=== PATIENT | male | born 1965 | race Caucasian/White ===

== ENCOUNTER 2018-11-08 07:56 | Observation (INO) | payer OTHER ==
[2018-11-08] MEDS: SOD CHLORIDE 0.9% 1,000 ML IV (07:00)
[~2018-11-08 07:56] MED LIST: CEFAZOLIN 2 GM/50 ML (PMX) 50 ML IVPB
[2018-11-08 08:59] LABS: ADD MAN DIFF? NO
[2018-11-08 09:00] LABS: BASOPHILS % 0.4 % (0.0-2.0); EOSINOPHILS # 0.4 10^3/ul (0.0-0.5); HEMATOCRIT 43.5 % (42.0-52.0); HEMOGLOBIN 15.4 g/dl (14.0-18.0); LYMPHOCYTES # 1.8 10^3/ul (0.8-2.9); LYMPHOCYTES % 20.2 % (15.0-51.0); MEAN CORPUSCULAR HEMOGLOBIN 33.1 pg (29.0-33.0); MEAN CORPUSCULAR HGB CONC 35.4 g/dl (32.0-37.0); MEAN CORPUSCULAR VOLUME 93.5 fl (82.0-101.0); MEAN PLATELET VOLUME 8.7 fl (7.4-10.4); MONOCYTE # 0.9 10^3/ul (0.3-0.9); MONOCYTES % 9.7 % (0.0-11.0); NEUTROPHIL # 5.9 10^3/ul (1.6-7.5); NEUTROPHILS % 65.4 % (39.0-77.0); PLATELET COUNT 235 10^3/UL (140-415); RED BLOOD COUNT 4.65 10^6/ul (4.70-6.10); RED CELL DISTRIBUTION WIDTH 12.4 % (11.5-14.5)
[2018-11-08 09:24] LABS: INR 0.92; PARTIAL THROMBOPLASTIN TIME 29.2 Sec (23.0-35.0); PROTIME 12.5 Sec (11.9-14.9)
[2018-11-08 09:27] LABS: ANION GAP 8 (5-13); BLOOD UREA NITROGEN 8 mg/dl (7-20); CALCIUM 9.5 mg/dl (8.4-10.2); CARBON DIOXIDE 28 mmol/L (21-31); CHLORIDE 98 mmol/L (97-110); Estimated GFR > 60 mL/min (>60); GLUCOSE 98 mg/dl (70-220); SODIUM 134 mmol/L (135-144)
[2018-11-08] MEDS ORDERED: LIDOCAINE 2% (SDV) 5 ML INJ (09:40)
[2018-11-08] MEDS ORDERED: PROPOFOL 20 ML (09:40)
[2018-11-08] MEDS ORDERED: FENTAnyl 50 MCG/ML VIAL (09:40)
[2018-11-08] MEDS ORDERED: MIDAZOLAM 1 MG/ML 2 ML INJ (09:40)
[2018-11-08] MEDS ORDERED: hydrALAzine 20 MG INJ IV (10:00)
[2018-11-08] MEDS ORDERED: OXYCODONE/ACETAMINOPHEN (5/325) TAB PO ×2 (10:00)
[2018-11-08] MEDS ORDERED: ONDANSETRON 4 MG INJ IV ×2 (10:00→14:00)
[2018-11-08] MEDS ORDERED: HYDROmorphONE 1 MG/5 ML IV SYRINGE IV ×3 (10:00)
[2018-11-08] MEDS ORDERED: MEPERIDINE 25 MG INJ IV (10:00)
[2018-11-08] MEDS ORDERED: LABETALOL HCL 20MG INJ IV (10:00)
[2018-11-08] MEDS ORDERED: ALBUTEROL 0.083% (NEB) 2.5 MG/3 ML AMP HHN (10:00)
[2018-11-08] MEDS ORDERED: CEFAZOLIN 1 GM INJ (11:01)
[2018-11-08] MEDS ORDERED: SUCCINYLCHOLINE CHLORIDE 100 MG/5 ML SYG IV (11:01)
[2018-11-08] MEDS ORDERED: ROCURONIUM 50 MG INJ (11:01)
[2018-11-08] MEDS ORDERED: ONDANSETRON 4 MG INJ (11:02)
[2018-11-08] MEDS ORDERED: DEXAMETHASONE 4 MG/ML 5 ML INJ (11:02)
[2018-11-08] MEDS ORDERED: GLYCOPYRROLATE 0.4 MG INJ (11:47)
[2018-11-08] MEDS ORDERED: NEOSTIGMINE 3 MG/3 ML SYRINGE (11:47)
[2018-11-08] MEDS: BUPIVACAINE 0.25%/EPI (SDV) 10 ML INJ (12:02)
[2018-11-08] MEDS: LIDOCAINE 1%/EPI 30 ML INJ (12:02)
[2018-11-08] MEDS ORDERED: GENTAMICIN 80 MG INJ (12:46)
[2018-11-08] MEDS: NEOMYC/POLYMYX/BACIT 30 GM OINT (13:12)
[2018-11-08] MEDS: LACTATED RINGER'S 1,000 ML IV (13:35)
[2018-11-08] MEDS ORDERED: HYDROCODONE/APAP (5/325) TAB PO (14:00)
[2018-11-08] MEDS: morphine 2 MG INJ IV (15:51)
[2018-11-08] MEDS ORDERED: CEFAZOLIN 1 GM/50 ML (PMX) 50 ML IVPB (18:00)
[2018-11-08] MEDS: HYDROCODONE/APAP (5/325) TAB PO (18:34)
[2018-11-08] MEDS: CIPROFLOXACIN 500 MG TAB PO (18:34)
[2018-11-08] MEDS: ZOLPIDEM 5 MG TAB PO (21:44)
[2018-11-08] MEDS: metroNIDAZOLE 500 MG TAB PO (21:44)
[2018-11-09 04:59] LABS: ADD MAN DIFF? NO
[2018-11-09 05:10] LABS: WHITE BLOOD COUNT 10.4 10^3/ul (4.8-10.8)
[2018-11-09 05:10] LABS: BASOPHILS % 0.2 % (0.0-2.0); EOSINOPHILS % 0.3 % (0.0-7.0); HEMATOCRIT 42.4 % (42.0-52.0); HEMOGLOBIN 14.8 g/dl (14.0-18.0); LYMPHOCYTES # 1.8 10^3/ul (0.8-2.9); LYMPHOCYTES % 17.7 % (15.0-51.0); MEAN CORPUSCULAR HEMOGLOBIN 32.9 pg (29.0-33.0); MEAN CORPUSCULAR HGB CONC 34.9 g/dl (32.0-37.0); MEAN CORPUSCULAR VOLUME 94.2 fl (82.0-101.0); MONOCYTES % 9.9 % (0.0-11.0); NEUTROPHIL # 7.4 10^3/ul (1.6-7.5); NEUTROPHILS % 71.2 % (39.0-77.0); PLATELET COUNT 221 10^3/UL (140-415); RED CELL DISTRIBUTION WIDTH 12.3 % (11.5-14.5)
[2018-11-09] MEDS: HYDROCODONE/APAP (5/325) TAB PO ×2 (05:50→11:23)
[2018-11-09] MEDS: CIPROFLOXACIN 500 MG TAB PO (05:50)
[2018-11-09] MEDS: metroNIDAZOLE 500 MG TAB PO ×2 (05:50→13:36)
[2018-11-09] MEDS: LACTATED RINGER'S 1,000 ML IV (13:35)
== END 2018-11-09 14:58 | disposition home or self-care (01) ==
LOC: SDS 07:56 → REC 13:35 → MS1 14:42
DX: K60.3 Anal fistula (principal)
CPT/HCPCS: 46280; 71045; 80048; 85025; 85610; 85730; 88304; 93005